=== PATIENT | female | born 1965 | race Hispanic/Latino ===

== ENCOUNTER → 2021-01-13 | Day surgery (SDC) | payer OTHER ==
[2021-01-12 10:34] LABS: BASOPHILS % 0.7 % (0.0-1.0); EOSINOPHILS # (AUTO) 0.2 (0.0-0.4); EOSINOPHILS % 3.5 % (0.0-6.0); HEMATOCRIT 39.8 % (34.2-44.1); LYMPHOCYTES % 44.1 % (18.0-39.1); MEAN CORPUSCULAR HEMOGLOBIN 29.4 pg (28-32); MEAN CORPUSCULAR HGB CONC 32.7 g/dL (31-35); MONOCYTES # (AUTO) 0.3 (0.2-0.8); MONOCYTES % 6.3 % (4.4-11.3); NEUTROPHILS # (AUTO) 2.1 (2.1-6.9); NEUTROPHILS % 45.2 % (38.7-80.0); PLATELET COUNT 124 x10e3/uL (140-360); RED BLOOD COUNT 4.42 x10e6/uL (3.6-5.1); RED CELL DISTRIBUTION WIDTH 12.7 % (11.7-14.4)
[~2021-01-13] MED LIST: BUPIVACAINE HCL 0.5% INJ 30 ML VIAL INJ ONE; CEFTRIAXONE 1 GM VIAL ONE; FENTANYL CITRATE/PF 100MCG/2 ML INJ ONE; PANTOPRAZOLE SO40 MG PO; SODIUM CHLORIDE 0.9% 50ML 100 ML ONE; SODIUM CHLORIDE 0.9% 50ML 50 ML ONE
[2021-01-13 11:40] VITALS: BP 159/96
== END | disposition home or self-care (01) ==
LOC: OR 08:54
PROVIDERS: ATTEND Orthopaedic Surgery
DX: S52.121A Displaced fracture of head of right radius, initial encounter for closed fracture (principal); M94.221 Chondromalacia, right elbow; R00.1 Bradycardia, unspecified; K21.9 Gastro-esophageal reflux disease without esophagitis; K58.9 Irritable bowel syndrome, unspecified; X58.XXXA Exposure to other specified factors, initial encounter; Z01.810 Encounter for preprocedural cardiovascular examination; Z01.812 Encounter for preprocedural laboratory examination; Z20.822 Contact with and (suspected) exposure to COVID-19
CPT/HCPCS: 24665; 36415; 76000; 85025; 93005; C1713 ×2; J0690; J0696; J3010; U0002